=== PATIENT | male | born 1995 | race Hispanic/Latino ===

== ENCOUNTER 2023-03-10 13:41 | Emergency (ER) | payer SELFPAY ==
[~2023-03-10] VITALS: Ht 175.3 cm; Wt 104.3 kg
[2023-03-10] MEDS ORDERED: KETOROLAC TROMETHAMINE 30 MG/ML VIAL IV STA (14:40)
[2023-03-10] MEDS ORDERED: SODIUM CHLORIDE 0.9% 1000ML 1,000 ML IV SCH (14:45)
[2023-03-10] MEDS ORDERED: KETOROLAC TROMETHAMINE 30 MG/ML VIAL ONE (15:00)
[2023-03-10] MEDS ORDERED: SODIUM CHLORIDE 0.9% 1000ML 1,000 ML ONE (15:00)
[2023-03-10] MEDS ORDERED: DICYCLOMINE HCL20 MG PO (16:11)
[2023-03-10] MEDS ORDERED: ONDANSETRON ODT4 MG PO (16:11)
[2023-03-10 16:25] VITALS: O2SAT 99
[2023-03-10] MEDS ORDERED: IOPAMIDOL 370 MG/ML 100 ML INFUS..BTL INJ ONE (16:45)
== END 2023-03-10 16:27 | disposition home or self-care (01) ==
LOC: FSED 14:08
DX: R10.12 Left upper quadrant pain (principal); R07.89 Other chest pain
CPT/HCPCS: 74177; 80053; 82553; 84484; 85025; 99284; J1885; J7030; Q9967